=== PATIENT | female | born 1970 | race African-American/Black ===

== ENCOUNTER 2019-10-16 11:12 | Emergency (ER) | payer BC, SELFPAY ==
--- NOTE | ~2019-10-16 | XR_ITS ---
EXAMINATION: XR abdomen/kub 1V DATE: 10/16/2019 11:50 INDICATION: Right-sided abdominal pain. Hematuria. TECHNIQUE: A supine view of the abdomen was obtained. COMPARISON: CT abdomen and pelvis 06/14/2019 FINDINGS: There are no dilated loops of bowel. There are phleboliths in the pelvis. There is a surgic al clip in left pelvis. IMPRESSION: 1. No urolithiasis. Reviewed, dictated and finalized at location E. IMPRESSION: 1. No urolithiasis.
--- NOTE | 2019-10-16 11:18 | ED.GENADULT ---
HPI - General Adult General Chief complaint: Urogenital-Female Stated complaint: uti Time Seen by Provider: 10/16/19 11:18 Source: patient Mode of arrival: ambulatory Limitations: no limitations History of Present Illness HPI narrative: 49-year-old female patient presents to the [facility] with complaints of right flank pain that started last night. Patient states that she has had issues with chronic blood in her urine in the past and that her primary doctor referred her to a apn. Patient saw her apn for the first time yesterday and has orders to have blood drawn. Patient states that the flank pain did not start until last night. Patient states that this does feel similar to when she had a UTI. Patient states that she does remember having pain with urination last week but that did resolve. Patient states she does have increase in frequency with urination. Patient also reports diarrhea about 4 times last night. Patient denies any fevers nausea or vomiting. Patient denies taking anything for the pain. Related Data Home Medications Medication Instructions Recorded Confirmed ferrous sulfate 325 mg DAILY 06/14/19 10/16/19 potassium chloride 20 meq PO DAILY 06/14/19 10/16/19 ergocalciferol (vitamin D2) 1,250 mcg DAILY 10/16/19 10/16/19 estradiol 1 patch WEEKLY 10/16/19 10/16/19 hydrochlorothiazide 25 mg DAILY 10/16/19 10/16/19 sertraline 50 mg DAILY 10/16/19 10/16/19 sumatriptan succinate 6 mg SUBCUT PRN PRN 10/16/19 10/16/19 tramadol 50 mg Q4-6H PRN 10/16/19 10/16/19 Allergies Allergy/AdvReac Type Severity Reaction Status Date / Time No Known Allergies Allergy Verified 10/16/19 11:15 Review of Systems Review of Systems: Narrative: CONSTITUTIONAL: Denies fever, chills, or sweats. EYES: Denies visual changes, redness, or discharge. ENT: Denies rhinorrhea, congestion, sore throat, or otalgia. CARDIOVASCULAR: Denies chest pain, palpitations, or edema. RESPIRATORY: Denies cough or dyspnea. GASTROINTESTINAL: Denies abdominal pain, nausea, vomiting, positive diarrhea. GENITOURINARY: Denies dysuria or hematuria. SKIN: Denies rash or itching. MUSCULOSKELETAL: Positive right lower back pain, denies joint pain, or myalgia. NEUROLOGIC: Denies headache, numbness, or weakness. PSYCHIATRIC: Denies anxiety or depression. [facility] Past Medical History Medical History Anxiety Arthritis neck and shoulders Back pain Depression Fibroids Gastritis HTN (hypertension) PADILLA (iron deficiency anemia) Kidney stones Liver disease Migraines Surgical History Surgical History History of colonoscopy History of hysterectomy 05/2018 History of tubal ligation Social History Social History Tobacco type: cigarettes Alcohol intake: current Substance use: never Gender identity (if verbalized by the patient): Female Comments At the time of my signature I agree with nursing past medical history, surgical, social, and family history. There is no relevant family history pertinent to the presenting complaint. Exam Narrative: Exam Narrative: GENERAL: Well-appearing, well-nourished, and in no acute distress. HEAD: Normocephalic, atraumatic. EYES: PERRLA and EOMI. ENT: Nares clear, no rhinorrhea or epistaxis. Mucous membranes moist. NECK: Supple. No lymphadenopathy CHEST: Clear to auscultation. No respiratory distress. HEART: Regular rate and rhythm. No murmur heard. Normal peripheral pulses. ABDOMEN: Soft, nontender, nondistended, normal active bowel sounds. CVA tenderness on percussion on the right side EXTREMITIES: Normal range of motion. No edema. SKIN: Warm, dry, no rash. NEURO: No focal deficits. Alert and oriented x3. Course Reevaluation(s) Reevaluation #1: Reevaluated patient after her KUB had resulted. Discussed with her that the KUB does not s
[2019-10-16 11:23] VITALS: BP 156/90; PULSE 77; RESP 18; TEMP 36.8; O2SAT 100
== END 2019-10-16 12:15 | disposition home or self-care (01) ==
PROVIDERS: Emergency Provider Nurse Practitioner Family; PCP Nurse Practitioner Family
DX: R10.9 Unspecified abdominal pain (principal); N30.21 Other chronic cystitis with hematuria; F41.9 Anxiety disorder, unspecified; M19.012 Primary osteoarthritis, left shoulder; M19.011 Primary osteoarthritis, right shoulder; F32.9 Major depressive disorder, single episode, unspecified; I10 Essential (primary) hypertension; D50.9 Iron deficiency anemia, unspecified; Z87.442 Personal history of urinary calculi; K76.9 Liver disease, unspecified; F17.210 Nicotine dependence, cigarettes, uncomplicated
CPT/HCPCS: 74018; 81003; 87086; 99213; G0463

== ENCOUNTER 2019-10-29 19:53 | Emergency (ER) | payer BC, SELFPAY ==
[2019-10-29 19:55] VITALS: BP 150/80; PULSE 91; RESP 16; TEMP 37.1; O2SAT 100
--- NOTE | 2019-10-29 20:13 | ED.SKABFB ---
HPI - Skin/Abscess/Foreign Bdy General Chief complaint: Skin/Abscess/Foreign Body Stated complaint: hemorroids Time Seen by Provider: 10/29/19 20:08 Source: RN notes reviewed History of Present Illness HPI narrative: Patient presents emergency department from home for hemorrhoid. Patient states that she noted today while using the restroom she had a large hemorrhoid that was tender to palpation. She states that she has noted no blood in her stool. She denies having any fevers or chills abdominal pain nausea vomiting diarrhea or any other symptoms patient states that it does hurt to sit flat on her bottom she denies any other symptoms at this time Related Data Home Medications Medication Instructions Recorded Confirmed ferrous sulfate 325 mg DAILY 06/14/19 10/16/19 potassium chloride 20 meq PO DAILY 06/14/19 10/16/19 ergocalciferol (vitamin D2) 1,250 mcg DAILY 10/16/19 10/16/19 estradiol 1 patch WEEKLY 10/16/19 10/16/19 hydrochlorothiazide 25 mg DAILY 10/16/19 10/16/19 sertraline 50 mg DAILY 10/16/19 10/16/19 sumatriptan succinate 6 mg SUBCUT PRN PRN 10/16/19 10/16/19 tramadol 50 mg Q4-6H PRN 10/16/19 10/16/19 Allergies Allergy/AdvReac Type Severity Reaction Status Date / Time No Known Allergies Allergy Verified 10/29/19 19:58 Review of Systems Review of Systems: Narrative: Gen.: Denies fevers or chills ENT: Denies congestion Respiratory: Denies shortness of breath or cough CV: Denies chest pain or palpitations GI: Denies abdominal pain nausea, emesis or diarrhea reports rectal pain Musculoskeletal: Denies back pain or muscle pain Neuro: Denies numbness, tingling, weakness or focal weakness Skin: Denies rash Except as documented, all other systems reviewed and negative [facility] Past Medical History Medical History Anxiety Arthritis neck and shoulders Back pain Depression Fibroids Gastritis HTN (hypertension) PADILLA (iron deficiency anemia) Kidney stones Liver disease Migraines Social History Social History Tobacco type: cigarettes Alcohol intake: current Substance use: never Gender identity (if verbalized by the patient): Female Exam Narrative: Exam Narrative: APPEARANCE: No acute distress, nontoxic, resting in bed EYES: EOMI HEENT: Normocephalic, atraumatic, OMM RESPIRATORY: No respiratory distress Clear to auscultation bilaterally with no rhonchi wheezing or rales. CARDIOVASCULAR: Regular rate and rhythm without murmurs rubs or gallops. ABDOMINAL: Soft, nontender, nondistended, no rebound or guarding Rectal: Large hemorrhoid in the 7 o'clock position no active bleeding no surrounding erythema MUSCULOSKELETAl: Moves all extremities. No clubbing, cyanosis or edema. NEURO: Awake and alert. Following commands, speech normal, no focal deficits SKIN:: Warm, dry. No rashes lesions or abrasions PSYCHIATRIC: Normal affect/mood, Course Course Emergency Course: Discussed with patient results of workup and diagnosis. Discussed need for follow-up with primary care, proper use of medication, and reasons to return to the emergency department. Patient understands and agrees to current treatment plan Vital Signs Vital signs: Vital Signs Temperature 98.7 F 10/29/19 19:55 Pulse Rate 91 10/29/19 19:55 Respiratory Rate 16 10/29/19 19:55 Blood Pressure 150/80 H 10/29/19 19:55 Pulse Oximetry 100 10/29/19 19:55 Temperature 98.7 F 10/29/19 19:55 Pulse Rate 91 10/29/19 19:55 Respiratory Rate 16 10/29/19 19:55 Blood Pressure 150/80 H 10/29/19 19:55 Pulse Oximetry 100 10/29/19 19:55 Discharge Plan Discharge Clinical Impression: Hemorrhoid Patient Disposition: Home, Self-Care Condition: Stable Instructions: Antibiotic Form, Hemorrhoids (ED) Additional Instructions: Return for increasing pain fever or any other symptoms of concern Prescriptions: New
== END 2019-10-29 20:59 | disposition home or self-care (01) ==
PROVIDERS: Emergency Provider Emergency Medicine; PCP Nurse Practitioner Family
DX: K64.9 Unspecified hemorrhoids (principal); F41.9 Anxiety disorder, unspecified; M19.012 Primary osteoarthritis, left shoulder; M19.011 Primary osteoarthritis, right shoulder; M47.812 Spondylosis without myelopathy or radiculopathy, cervical region; I10 Essential (primary) hypertension; D50.9 Iron deficiency anemia, unspecified; Z87.442 Personal history of urinary calculi; K76.9 Liver disease, unspecified; F17.210 Nicotine dependence, cigarettes, uncomplicated
CPT/HCPCS: 99283; A9270

== ENCOUNTER 2019-12-11 11:27 | Emergency (ER) | payer BC, SELFPAY ==
[2019-12-11 11:42] VITALS: BP 129/87; PULSE 72; RESP 18; TEMP 36.6; O2SAT 100
--- NOTE | 2019-12-11 12:09 | ED.WOUNDLAC ---
HPI - Wound/Laceration General Chief Complaint: Wound/Laceration Stated Complaint: Abrasion between toes/foot pain Time Seen by Provider: 12/11/19 12:08 Source: patient and RN notes reviewed Mode of arrival: ambulatory Limitations: no limitations History of Present Illness HPI narrative: 49-year-old female presents with concern for painful open skin between her toes. Reports 3 to 4-month history of this. Denies any injury, trauma. Reports she wears steel toe boots at work. Denies any intervention for this. Related Data Home Medications Medication Instructions Recorded Confirmed ergocalciferol (vitamin D2) 1,250 mcg DAILY 10/16/19 12/09/19 estradiol 1 patch WEEKLY 10/16/19 12/09/19 hydrochlorothiazide 25 mg DAILY 10/16/19 12/09/19 sertraline 50 mg DAILY 10/16/19 12/09/19 sumatriptan succinate 6 mg SUBCUT PRN PRN 10/16/19 12/09/19 tramadol 50 mg Q4-6H PRN 10/16/19 12/09/19 clonazepam 12/11/19 potassium chloride [Klor-Con] 12/11/19 Allergies Allergy/AdvReac Type Severity Reaction Status Date / Time No Known Allergies Allergy Verified 12/09/19 10:34 Review of Systems Review of Systems: Narrative: CONSTITUTIONAL: Denies malaise, chills, sweats, or fever. SKIN: Reports cracked, painful, discolored skin between the toes of both feet, reports the worst areas between the fourth and fifth toe on the left foot. Reports thick discolored toenails MUSCULOSKELETAL: Denies musculoskeletal pain All systems reviewed & are unremarkable except as noted in HPI and below PMFSH Social History Social History Tobacco type: cigarettes Alcohol intake: current Substance use: never Gender identity (if verbalized by the patient): Female Comments At time of signature, agree with nursing past medical, surgical, social and family history. There is no relevant family history pertinent to the presenting complaint Exam Narrative: Exam Narrative: GENERAL: Well-appearing, well-nourished, and in no acute distress. HEAD: Normocephalic, atraumatic. EYES: PERRLA, conjunctivae clear NECK: Supple. CHEST: Speaks in full sentences. No respiratory distress. HEART: Regular rate and rhythm. Normal and equal peripheral pulses. EXTREMITIES: Digits of both feet have normal strength and sensation, no edema, normal range of motion. Distal pulses palpable and equal bilaterally, skin warm, dry, pink. Capillary refill less than 3 seconds. SKIN: Warm, dry, no rash. Yellow discolored skin between all digits of bilateral feet, with some fissures noted between the fourth and fifth digits of the left foot. Thick, yellow discolored toenails bilaterally NEURO: Alert and oriented x3. PSYCH: Normal mood and affect Course Course Emergency Course: Patient is aware of diagnosis, understands and agrees to treatment plan. Anticipatory guidance given. Patient agrees to follow-up as directed and is aware of reasons to seek care at the emergency department. Portions of this record may have been created with voice recognition software Vital Signs Vital signs: Vital Signs Temperature 97.8 F 12/11/19 11:42 Pulse Rate 72 12/11/19 11:42 Respiratory Rate 18 12/11/19 11:42 Blood Pressure 129/87 12/11/19 11:42 Pulse Oximetry 100 12/11/19 11:42 Temperature 97.8 F 12/11/19 11:42 Pulse Rate 72 12/11/19 11:42 Respiratory Rate 18 12/11/19 11:42 Blood Pressure 129/87 12/11/19 11:42 Pulse Oximetry 100 12/11/19 11:42 Reviewed. Patient has been instructed to follow up with her primary care provider within the next week regarding her elevated blood pressure today. MDM - Wound/Laceration MDM Narrative Medical decision making narrative: Exam findings show no acute concerns or changes; patient is non-toxic appearing and is in no distress. Patient is appropriate for outpatient treatment and follow-up. Differential Diagnosis Differential diagnosis: Likely other (Tinea, abrasions, avulsions, lacerati
== END 2019-12-11 12:20 | disposition home or self-care (01) ==
PROVIDERS: Emergency Provider Nurse Practitioner; PCP Nurse Practitioner Family
DX: B35.3 Tinea pedis (principal); I10 Essential (primary) hypertension; F41.9 Anxiety disorder, unspecified; F32.9 Major depressive disorder, single episode, unspecified
CPT/HCPCS: 99213; G0463

== ENCOUNTER 2020-01-13 12:06 | Emergency (ER) | payer BC, SELFPAY ==
[2020-01-13 12:23] VITALS: BP 152/85; PULSE 73; RESP 18; TEMP 36.8; O2SAT 98
--- NOTE | 2020-01-13 12:24 | ECG_ITS ---
Measurements Intervals [place] Rate: 73 P: 66 HI: 163 QRS: 53 QRSD: 97 T: 48 QT: 414 QTc: 458 Interpretive Statements SINUS RHYTHM BASELINE ARTIFACT- II, III, AVR, AVL, AVF NORMAL ECG Electronically Signed On 01-13-2020 12:35:46 CDT by Khanh Roberson D.O.
--- NOTE | 2020-01-13 12:34 | ED.CHESTPAIN ---
HPI - Chest Pain General Chief Complaint: Chest Pain Stated Complaint: Chest Pain Time Seen by Provider: 01/13/20 12:14 Source: patient and RN notes reviewed Mode of arrival: ambulatory Limitations: no limitations History of Present Illness HPI narrative: Patient presents today complaining of sudden onset right-sided chest pain that radiates into the back. Pain started at 1900 last night, after she had been exercising that afternoon. She does exercise frequently. She is also complaining of intermittent shortness of breath. Describes the pain as achy. Currently rates her pain 8/10. She has tried Tylenol and tramadol without relief. Denies cardiac history. Reports father with history of [place]. Denies history of COPD or asthma. Quit smoking cigarettes 4 years ago, but smokes 2 black and mild cigarillos daily. States her pain improves when she is lying prone, but worsens when she is supine. Denies nausea, vomiting, abdominal pain, sweats, chills, fever. Denies dizziness, lightheadedness. No known COVID-19 exposure. No sick symptoms. Believes she does still have her gallbladder. MD complaint: chest pain Related Data Home Medications Medication Instructions Recorded Confirmed ergocalciferol (vitamin D2) 1,250 mcg DAILY 10/16/19 12/09/19 estradiol 1 patch WEEKLY 10/16/19 12/09/19 hydrochlorothiazide 25 mg DAILY 10/16/19 12/09/19 sertraline 50 mg DAILY 10/16/19 12/09/19 sumatriptan succinate 6 mg SUBCUT PRN PRN 10/16/19 12/09/19 tramadol 50 mg Q4-6H PRN 10/16/19 12/09/19 clonazepam 0.5 mg PO DAILY PRN 12/11/19 potassium chloride [Klor-Con] 12/11/19 ergocalciferol (vitamin D2) 01/13/20 tramadol mg 01/13/20 Allergies Allergy/AdvReac Type Severity Reaction Status Date / Time No Known Allergies Allergy Verified 01/13/20 12:13 Review of Systems Review of Systems: Narrative: CONSTITUTIONAL: Denies body aches, fever, chills, or sweats. EYES: Denies visual changes, redness, or discharge. ENT: Denies rhinorrhea, congestion, sore throat, or otalgia. CARDIOVASCULAR: Denies palpitations, or edema. + Right sided chest pain RESPIRATORY: Denies cough. + Shortness of breath GASTROINTESTINAL: Denies abdominal pain, nausea, vomiting, or diarrhea. GENITOURINARY: Denies dysuria or hematuria. SKIN: Denies rash, itching, or wounds. MUSCULOSKELETAL: Denies back pain, joint pain, or myalgia. NEUROLOGIC: Denies headache, numbness, tingling, or weakness. PSYCH: Denies depression or anxiety. [facility] Family History Family History (Updated 01/13/20 @ 12:44 by Yesenia Rausch, [facility], ) Father Kidney disease Hypertension Acute myocardial infarction Sibling Hypertension Sibling Hypertension Thyroid disease Sibling Hypertension Social History Social History Tobacco type: cigarettes Alcohol intake: current Substance use: never Gender identity (if verbalized by the patient): Female Comments At time of signature, I have reviewed and agree with nursing past medical, surgical, social and family history unless otherwise noted. Please see nursing chart for further information. There is no relevant family history pertinent to the presenting complaint Exam Narrative: Exam Narrative: GENERAL: Well-appearing, well-nourished, mild pain distress. HEAD: Normocephalic, atraumatic. EYES: EOMI. No redness or drainage. Conjunctivae normal. ENT: Mucous membranes pink and moist. NECK: Normal AROM. CHEST: No respiratory distress. Clear to auscultation. Tender to right lateral ribs. HEART: Regular rate and rhythm. No murmur appreciated. Normal peripheral pulses. ABDOMEN: Soft, nontender, nondistended, normal active bowel sounds. MUSCULOSKELETAL: No bony tenderness. EXTREMITIES: Normal range of motion. No edema. SKIN: Warm, dry, no rash. Capillary refill normal. Normal skin turgor. NEURO: No focal deficits. Alert and oriented x3. Gait steady. PSYCH: Normal affect. No signs
== END 2020-01-13 12:35 | disposition short-term general hospital (02) ==
PROVIDERS: Emergency Provider Nurse Practitioner; PCP Nurse Practitioner Family
DX: R06.02 Shortness of breath (principal); R07.9 Chest pain, unspecified; F17.290 Nicotine dependence, other tobacco product, uncomplicated; I10 Essential (primary) hypertension; F41.9 Anxiety disorder, unspecified; F32.9 Major depressive disorder, single episode, unspecified
CPT/HCPCS: 93005; 99213; G0463

== ENCOUNTER 2020-01-13 13:33 | Emergency (ER) | payer BC, SELFPAY ==
[2020-01-13] VITALS (15 sets, daily range): BP systolic 165–170; BP diastolic 86–96; PULSE 53–95; RESP 12–20; TEMP 36.7; O2SAT 98–100
--- NOTE | ~2020-01-13 | CT_ITS ---
EXAMINATION: CTA chest PE protocol DATE: 01/13/2020 15:00 INDICATION: Right chest pain. Lung nodule. TECHNIQUE: Computed tomography angiography (CTA) of the chest was performed with 100 mL Omnipaque-350 intravenous contrast timed to evaluate the pulmonary arteries. Coronal maximum intensity projection 3D-reconstructions were created by the technologist. Automated exposure control and iterative reconst ruction technique were employed. The dose-length product was 202.41 mGy-cm. COMPARISON: Chest single view 01/13/2020, CT abdomen and pelvis 06/14/2019 FINDINGS: The lungs demonstrate mild dependent atelectasis. No pleural effusion. The heart size is no rmal. No pericardial effusion. There is no pulmonary embolus. There are cysts in the liver measuring up to 2.3 cm. There is mild thoracic spondylosis and moderate cervical spondylosis. IMPRESSION: 1. No pulmonary embolus. 2. No lung nodule. Reviewed, dictated and finalized at location A.
--- NOTE | ~2020-01-13 | XR_ITS ---
EXAMINATION: XR chest 1V portable INDICATION: Chest pain TECHNIQUE: Portable AP chest at 1421 hours COMPARISON: 02/13/2018 FINDINGS: An approximately 2.8 cm nodular opacity projects in the left midlung zone. No acute airspac e opacities are identified. There is no pleural effusion or pneumothorax. The cardiomediastinal silho uette is normal for technique. IMPRESSION: 1. Nodular opacity of the left midlung zone. Further evaluation with CT of the chest is recommended, which is pending. Reviewed, dictated and finalized at location A.
--- NOTE | 2020-01-13 13:38 | ECG_ITS ---
Measurements Intervals [place] Rate: 74 P: 61 MA: 136 QRS: 43 QRSD: 97 T: 50 QT: 407 QTc: 452 Interpretive Statements SINUS RHYTHM BASELINE WANDER- I, III, AVR, AVL, AVF BORDERLINE ECG Electronically Signed On 01-13-2020 13:59:29 CDT by Khanh Roberson D.O.
--- NOTE | 2020-01-13 13:50 | ED.CHESTPAIN ---
HPI - Chest Pain General Chief Complaint: Chest Pain Stated Complaint: Chest Pain, Back Pain Time Seen by Provider: 01/13/20 13:37 Source: patient Mode of arrival: ambulatory Limitations: no limitations History of Present Illness HPI narrative: Patient presents with right-sided chest pain. Started yesterday while lifting 10 pound weights at the gym. She has had it before and was diagnosed with a kidney infection. She gauges the pain at 8 out of 10. She says she has shortness of breath but is just due to the pain. She denies fever chills or sweats. She denies nausea. She takes vitamin D for her bones and estrogen for her postmenopausal sweats. She has an occasional cough. Her surgeries include hysterectomy. She smokes Black and mild, she drinks wine, she does not smoke marijuana. She has not been sick recently. He does not work outside the home. She takes walks and reads books. MD complaint: chest pain Onset (ago): day(s) Timing of current episode: constant Onset: during exertion Pain location: right chest Pain radiation: back Severity: severe Pain scale (0-10): 8 Relieving factors: nothing Exacerbating factors: nothing Related Data Home Medications Medication Instructions Recorded Confirmed ergocalciferol (vitamin D2) 1,250 mcg PO WEEKLY 10/16/19 01/13/20 estradiol 1 patch WEEKLY 10/16/19 01/13/20 hydrochlorothiazide 25 mg DAILY 10/16/19 01/13/20 sertraline 50 mg DAILY 10/16/19 01/13/20 tramadol 50 mg Q4-6H PRN 10/16/19 01/13/20 clonazepam 0.5 mg PO DAILY PRN 12/11/19 01/13/20 Allergies Allergy/AdvReac Type Severity Reaction Status Date / Time No Known Allergies Allergy Verified 01/13/20 12:13 Review of Systems Review of Systems: Narrative: CONSTITUTIONAL: Denies fever, chills, or sweats. ENT: Denies rhinorrhea, congestion, sore throat, or otalgia. CARDIOVASCULAR: She has chest pain, but not palpitations, or edema. RESPIRATORY: She has cough and dyspnea. GASTROINTESTINAL: Denies abdominal pain, nausea, vomiting, or diarrhea. GENITOURINARY: Denies dysuria or hematuria. SKIN: Denies rash or itching. MUSCULOSKELETAL: She has back pain, but not joint pain, or myalgia. NEUROLOGIC: Denies headache, numbness, or weakness. . All systems reviewed & are unremarkable except as noted in HPI and below PMFSH Past Medical History Medical History Anxiety Arthritis neck and shoulders Back pain Depression Fibroids Gastritis HTN (hypertension) PADILLA (iron deficiency anemia) Keloid skin disorder Kidney stones Liver disease Migraines Surgical History Surgical History History of colonoscopy History of hysterectomy 05/2018 History of tubal ligation Family History Family History (Updated 01/13/20 @ 12:44 by Yesenia Rausch, [facility], ) Father Kidney disease Hypertension Acute myocardial infarction Sibling Hypertension Sibling Hypertension Thyroid disease Sibling Hypertension Social History Social History Tobacco type: cigarettes Alcohol intake: current Substance use: never Gender identity (if verbalized by the patient): Female Exam Narrative: Exam Narrative: GENERAL: Well-appearing, well-nourished, and in no acute distress. HEAD: Normocephalic, atraumatic. EYES: PERRLA and EOMI. ENT: Nares clear, no rhinorrhea or epistaxis. Mucous membranes moist. NECK: Supple. CHEST: Clear to auscultation. No respiratory distress. HEART: Regular rate and rhythm. No murmur heard. Normal peripheral pulses. ABDOMEN: Soft, nontender, nondistended, normal active bowel sounds. EXTREMITIES: Normal range of motion. No edema. SKIN: Warm, dry, no rash. Oily. NEURO: No focal deficits. Alert and oriented x3. PSYCH: Normal mood and affect. Course Reevaluation(s) Reevaluation #1: Patient is feeling a little better and says the chest pain is 6 out
[2020-01-13 13:59] LABS: Basophils Percent Auto 0.4 % (0.2-1.2); Eosinophils Absolute Auto 0.2 K/mm3 (0-0.3); Eosinophils Percent Auto 2.2 % (0-4.4); Hematocrit 34.1 % (37.0-47.0); Hemoglobin 11.9 g/dL (12.0-15.0); Lymphocytes Absolute Auto 3.09 K/mm3 (0.9-3.2); Lymphocytes Percent Auto 46.1 % (18.3-44.2); Mean Corpuscular HGB Conc 34.9 g/dl (32-36); Mean Corpuscular Hemoglobin 28.5 pg (26-34); Mean Corpuscular Volume 81.8 fl (80-100); Mean Platelet Volume 10.6 fl (7.4-10.4); Monocytes Absolute Auto 0.5 K/mm3 (0.1-0.6); Monocytes Percent Auto 6.7 % (2.6-8.5); Neutrophils Percent Auto 44.6 % (45.5-73.1); Platelet Count Result 197 k/mm3 (150-375); Red Blood Count 4.17 M/mm3 (4.2-5.4); Red Cell Distribution Width 13.2 % (11.5-14.5); White Blood Count 6.7 K/mm3 (4.5-10.0)
[2020-01-13] MEDS: ASPIRIN 81 MG CHEWABLE TABLET 324 MG PO (14:00)
[2020-01-13] MEDS: BELLADONNA ALK/PHENOB ELIX 10 ML, MAG HYDROX/ALUMINUM HYD/SIMETH 30 ML, LIDOCAINE HCL 2... PO (14:00)
[2020-01-13 14:09] LABS: Prothrombin Time 12.4 Seconds (11.1-14.7)
[2020-01-13 14:10] LABS: Partial Thromboplastin Time 27.6 SECONDS (22.3-36.8)
[2020-01-13 14:12] LABS: Alanine Aminotransferase 13 U/L (4-35); Albumin Level 4.3 g/dL (3.5-5.1); Alkaline Phosphatase 68 U/L (38-126); Anion Gap 7 mmol/L (8-16); Aspartate Amino Transferase 23 U/L (14-36); Bilirubin,Total 0.4 mg/dL (0.2-1.3); Blood Urea Nitrogen 17 mg/dL (7-17); Carbon Dioxide 29 mmol/L (22-30); Chloride 99 mmol/L (98-107); Estimated CRCL calculation 38 ml/min; Estimated Glomerular Filt Rate 48; Glucose 91 mg/dL (65-105); Potassium 3.3 mmol/L (3.4-5.0); Sodium 135 mmol/L (137-145)
[2020-01-13] MEDS: FAMOTIDINE 20 MG/2 ML VIAL IV PUSH (14:15)
[2020-01-13] MEDS: MORPHINE SULFATE 2 MG/ML INJ IV PUSH (14:17)
[2020-01-13] MEDS: SODIUM CHLORIDE 0.9% IV 1,000 ML 999 ML IV CONT (14:20)
[2020-01-13 14:24] LABS: NT Pro B Type Natriuretic Pept 363 PG/ML (5-100); Troponin I < 0.012 ng/mL (0.000-0.034)
[2020-01-13 14:34] LABS: Add Urine Microscopic? YES; Appearance Urine Clear (Clear); Bacteria Urine Trace /hpf; Bilirubin Urine Negative (Negative); Blood Urine 3+ (Negative); Color Urine Straw (Yellow); Glucose Urine UA Negative (Negative); Ketones Urine Negative (Negative); Leukocyte Esterase Ur Negative LEU/UL (Negative); Mucus Urine Rare /lpf; Nitrate Urine Negative (Negative); Protein Urine Negative (Negative); RBC Urine 51-75 /hpf (0-2); Specific Grav Ur 1.011 (1.001-1.035); Squamous Epithelial Cell Urine Few /hpf (Few); Urobilinogen Urine Negative mg/dL (<2.0); WBC Urine 0-3 /hpf
[2020-01-13] MEDS: IBUPROFEN 600 MG TABLET PO (15:41)
--- NOTE | 2020-01-13 16:00 | PC.NURSE ---
Pt. requested that they are ready to go and would like to be discharged. EDP notified and will discharge Pt.
== END 2020-01-13 16:36 | disposition home or self-care (01) ==
PROVIDERS: Emergency Provider Emergency Medicine; PCP Nurse Practitioner Family
DX: R07.89 Other chest pain (principal); I11.0 Hypertensive heart disease with heart failure; R31.9 Hematuria, unspecified; I50.9 Heart failure, unspecified; F41.9 Anxiety disorder, unspecified; F32.9 Major depressive disorder, single episode, unspecified; D50.9 Iron deficiency anemia, unspecified; M19.012 Primary osteoarthritis, left shoulder; M19.011 Primary osteoarthritis, right shoulder; M47.812 Spondylosis without myelopathy or radiculopathy, cervical region
CPT/HCPCS: 36415; 71045; 71275; 80053; 81001; 83880; 84484; 85025; 85610; 85730; 93005; 96361; 96374; 96375; 99284; A9270; J2270; J7030; Q9967

== ENCOUNTER 2020-02-06 15:56 | Emergency (ER) | payer BC, SELFPAY ==
[2020-02-06 16:11] VITALS: BP 115/95; PULSE 83; RESP 18; TEMP 36.3; O2SAT 100
--- NOTE | 2020-02-06 16:56 | ED.HA ---
HPI - Headache General Chief Complaint: Headache Stated Complaint: headache Time Seen by Provider: 02/06/20 16:44 Source: patient Mode of arrival: ambulatory Limitations: no limitations History of Present Illness HPI Narrative: This is a 50 year old female that presents to the ER for headache since last night. Described as throbbing. Has history of migraines. Reports she took medication last night for her headache with relief, but then the headache returned today. She has not taken anything for pain yet today. Reports photophobia. Denies fever, vision changes, vomiting, numbness, or weakness. Related Data Home Medications Medication Instructions Recorded Confirmed ergocalciferol (vitamin D2) 1,250 mcg PO WEEKLY 10/16/19 01/13/20 estradiol 1 patch WEEKLY 10/16/19 01/13/20 hydrochlorothiazide 25 mg DAILY 10/16/19 01/13/20 sertraline 50 mg DAILY 10/16/19 01/13/20 tramadol 50 mg Q4-6H PRN 10/16/19 01/13/20 clonazepam 0.5 mg PO DAILY PRN 12/11/19 01/13/20 sumatriptan succinate SUBCUT 02/06/20 Allergies Allergy/AdvReac Type Severity Reaction Status Date / Time No Known Allergies Allergy Verified 01/13/20 12:13 Review of Systems Review of Systems: Narrative: CONSTITUTIONAL: Denies fever EYES: Denies visual changes GASTROINTESTINAL: Denies vomiting NEUROLOGIC: Reports headache. Denies numbness, or weakness. All systems reviewed & are unremarkable except as noted in HPI and below PMFSH Family History Family History (Updated 01/13/20 @ 12:44 by Yesenia Rausch, [facility], ) Father Kidney disease Hypertension Acute myocardial infarction Sibling Hypertension Sibling Hypertension Thyroid disease Sibling Hypertension Social History Social History Tobacco type: cigarettes Alcohol intake: current Substance use: never Gender identity (if verbalized by the patient): Female Exam Narrative: Exam Narrative: GENERAL: Well-appearing, well-nourished, and in no acute distress. HEAD: Normocephalic, atraumatic. EYES: PERRLA and EOMI. ENT: Nares clear, no rhinorrhea or epistaxis. Mucous membranes moist. Oropharynx without tonsillar hypertrophy exudate or other lesions. Bilateral TMs pearly williamson non-bulging NECK: Supple. No adenopathy or masses. Normal range of motion CHEST: Clear to auscultation. No respiratory distress. No wheezes rales or rhonchi HEART: Regular rate and rhythm. No murmur heard. Normal peripheral pulses. EXTREMITIES: Normal range of motion. No edema. SKIN: Warm, dry, no rash. NEURO: No focal deficits. Alert and oriented x3. Cranial nerves II through XII grossly intact PSYCH: Normal mood and affect Course Vital Signs Vital signs: Vital Signs Temperature 97.3 F L 02/06/20 16:11 Pulse Rate 83 02/06/20 16:11 Respiratory Rate 18 02/06/20 16:11 Blood Pressure 115/95 H 02/06/20 16:11 Pulse Oximetry 100 02/06/20 16:11 Temperature 97.3 F L 02/06/20 16:11 Pulse Rate 83 02/06/20 16:11 Respiratory Rate 18 02/06/20 16:11 Blood Pressure 115/95 H 02/06/20 16:11 Pulse Oximetry 100 02/06/20 16:11 MDM - Headache MDM Narrative Medical decision making narrative: Patient presents the emergency department for migraine headache. Has history of migraines and takes triptans for this as needed at home. She is afebrile and nontoxic-appearing. She is neurologically intact. Reports relief with migraine cocktail. Patient stable and felt appropriate further outpatient evaluation. She was given warnings to return the ER Critical Care Time Critical Care Time Critical Care Time: No Discharge Plan Discharge Clinical Impression: Migraine Qualifiers: Migraine type: without aura Status migrainosus presence: without status migrainosus Intractability: not intractable Qualified Code(s): G43.009 - Migraine without aura, not intractable, without status migrainosus Patient Disposition: Home, Self-Care Condition: Stable In
[2020-02-06] MEDS: diphenhydrAMINE HCl INJ 50 MG/ML VIAL 25 MG IV PUSH (17:08)
[2020-02-06] MEDS: METOCLOPRAMIDE HCL INJ 10 MG/2 ML VIAL IV PUSH (17:09)
[2020-02-06] MEDS: KETOROLAC 30 MG/ML VIAL (*BKC) IV PUSH (17:09)
[2020-02-06] MEDS: SODIUM CHLORIDE 0.9% IV 1,000 ML 999 ML IV CONT (17:15)
[2020-02-06 18:41] VITALS: BP 129/88; PULSE 70; RESP 12; O2SAT 100
== END 2020-02-06 18:55 | disposition home or self-care (01) ==
PROVIDERS: Emergency Provider Emergency Medicine; PCP Nurse Practitioner Family
DX: G43.009 Migraine without aura, not intractable, without status migrainosus (principal)
CPT/HCPCS: 96361; 96365; 96375; 99284; J0131; J1100; J1200; J1885; J2765; J7030

== ENCOUNTER 2020-04-13 16:52 | Emergency (ER) | payer BC, SELFPAY ==
--- NOTE | 2020-04-13 16:56 | ED.GENADULT ---
HPI - General Adult General Chief complaint: Chest Pain Stated complaint: left arm pain/chest tightness Time Seen by Provider: 04/13/20 16:56 Source: patient Mode of arrival: ambulatory Limitations: no limitations History of Present Illness HPI narrative: 50-year-old female patient presents to the [facility] with complaints of left-sided chest pain that radiates to the left arm that started last night. Patient states she does have a little bit of shortness of breath that is intermittent and comes and goes but denies any shortness of breath at this time. Denies any swelling to the feet or legs. Patient denies any abdominal pain, nausea, vomiting or diarrhea. Denies any fevers, body aches or chills. Patient does have a history of liver disease and was seeing a kidney doctor but recently lost her insurance and is unable to see her kidney doctor at this time. Patient does have history of hypertension which she is treated for. Related Data Home Medications Medication Instructions Recorded Confirmed ergocalciferol (vitamin D2) 1,250 mcg PO WEEKLY 10/16/19 01/13/20 estradiol 1 patch WEEKLY 10/16/19 01/13/20 hydrochlorothiazide 25 mg DAILY 10/16/19 01/13/20 sertraline 50 mg DAILY 10/16/19 01/13/20 tramadol 50 mg Q4-6H PRN 10/16/19 01/13/20 clonazepam 0.5 mg PO DAILY PRN 12/11/19 01/13/20 sumatriptan succinate SUBCUT 02/06/20 amlodipine 04/13/20 potassium chloride meq PO 04/13/20 Allergies Allergy/AdvReac Type Severity Reaction Status Date / Time No Known Allergies Allergy Verified 01/13/20 12:13 Review of Systems Review of Systems: Narrative: CONSTITUTIONAL: Denies fever, chills, or sweats. EYES: Denies visual changes, redness, or discharge. ENT: Denies rhinorrhea, congestion, sore throat, or otalgia. CARDIOVASCULAR: Positive left sided chest pain with radiation to left arm, denies palpitations, or edema. RESPIRATORY: Denies cough, positive intermittent dyspnea. GASTROINTESTINAL: Denies abdominal pain, nausea, vomiting, or diarrhea. GENITOURINARY: Denies dysuria or hematuria. SKIN: Denies rash or itching. MUSCULOSKELETAL: Denies back pain, joint pain, or myalgia. NEUROLOGIC: Denies headache, numbness, or weakness. PSYCHIATRIC: Denies anxiety or depression. [facility] Past Medical History Medical History (Updated 04/13/20 @ 17:25 by SAURAV Cook) Anxiety Arthritis neck and shoulders Back pain Depression Fibroids Gastritis HTN (hypertension) PADILLA (iron deficiency anemia) Keloid skin disorder Kidney stones Liver disease Migraines Surgical History Surgical History History of colonoscopy History of hysterectomy 05/2018 History of tubal ligation Family History Family History Father Kidney disease Hypertension Acute myocardial infarction Sibling Hypertension Sibling Hypertension Thyroid disease Sibling Hypertension Social History Social History Tobacco type: cigarettes Alcohol intake: current Substance use: never Gender identity (if verbalized by the patient): Female Comments At the time of my signature I agree with nursing past medical history, surgical, social, and family history. There is no relevant family history pertinent to the presenting complaint. Exam Narrative: Exam Narrative: GENERAL: Well-appearing, well-nourished, and in no acute distress. HEAD: Normocephalic, atraumatic. EYES: PERRLA and EOMI. ENT: Nares clear, no rhinorrhea or epistaxis. Mucous membranes moist. NECK: Supple. No lymphadenopathy CHEST: Clear to auscultation. No respiratory distress. Patient able talk in clear complete sentences. No tripoding noted. HEART: Regular rate and rhythm. No murmur heard. Normal peripheral pulses. ABDOMEN: Soft, nontender, nondistended, normal active bowel sounds. EXTREMITIES: Normal range of motion. No mike
[2020-04-13 17:06] VITALS: BP 158/91; PULSE 74; RESP 16; TEMP 37.2; O2SAT 100
[2020-04-13] MEDS: ASPIRIN 81 MG CHEWABLE TABLET 324 MG PO (17:20)
== END 2020-04-13 17:27 | disposition short-term general hospital (02) ==
PROVIDERS: Emergency Provider Nurse Practitioner Family
DX: R07.89 Other chest pain (principal); I10 Essential (primary) hypertension; K76.9 Liver disease, unspecified; F41.9 Anxiety disorder, unspecified; F32.9 Major depressive disorder, single episode, unspecified; M19.012 Primary osteoarthritis, left shoulder; M19.011 Primary osteoarthritis, right shoulder; M47.812 Spondylosis without myelopathy or radiculopathy, cervical region
CPT/HCPCS: 93005; 99213; A9270; G0463

== ENCOUNTER 2020-04-13 17:54 | Emergency (ER) | payer BC, SELFPAY ==
--- NOTE | ~2020-04-13 | XR_ITS ---
EXAMINATION: XR chest 1V portable DATE: 04/13/2020 19:21 INDICATION: Left-sided chest pain radiating to the left arm and shoulder. Shortness of breath. TECHNIQUE: frontal view of the chest was obtained. COMPARISON: Chest radiograph dated 01/13/2020 FINDINGS: Symmetric nipple shadows project over the bilateral anterior sixth ribs at the lateral lung bases. No other airspace opacities, pulmonary edema, pleural effusion or pneumothorax. Cardiomegaly mediastina l silhouette is within normal limits for AP technique. IMPRESSION: 1. No acute cardiopulmonary disease. Reviewed, dictated and finalized at location H. TRUCTION CODE ADMINISTRATOR
--- NOTE | 2020-04-13 17:55 | PC.NURSE ---
EKG BROUGHT OVER FROM URGENT CARE. NSR. PT WISHES TO HAVE REPEAT EKG AFTER DOCTOR OFFICIALLY ORDERS IT.
[2020-04-13 18:22] VITALS: BP 164/86; PULSE 79; RESP 16; TEMP 36.8; O2SAT 98
--- NOTE | 2020-04-13 18:43 | ECG_ITS ---
SINUS RHYTHM DELAYED PRECORDIAL R/S TRANSITION BORDERLINE T WAVE ABNORMALITY- ANTERIOR LEADS BASELINE ARTIFACT- I, II, V5 BORDERLINE ECG Electronically Signed On 04-13-2020 20:18:32 ELECTORATE OFFICER by Khanh Roberson D.O. COMPARED TO ECG 04/13/2020 17:07:04 NO SIGNIFICANT CHANGES MTDD
[2020-04-13 18:55] LABS: Basophils Percent Auto 0.5 % (0.2-1.2); Eosinophils Absolute Auto 0.1 K/mm3 (0-0.3); Eosinophils Percent Auto 1.9 % (0-4.4); Hematocrit 35.2 % (37.0-47.0); Hemoglobin 12.2 g/dL (12.0-15.0); Immature Granulocyte Absolute 0.01 K/mm3 (0.00-0.031); Immature Granulocyte Percent A 0.2 % (0-0.5); Lymphocytes Absolute Auto 3.47 K/mm3 (0.9-3.2); Lymphocytes Percent Auto 55.6 % (18.3-44.2); Mean Corpuscular HGB Conc 34.7 g/dl (32-36); Mean Corpuscular Volume 83.6 fl (80-100); Monocytes Absolute Auto 0.4 K/mm3 (0.1-0.6); Monocytes Percent Auto 5.9 % (2.6-8.5); Neutrophils Absolute Auto 2.2 K/mm3 (1.3-6.7); Neutrophils Percent Auto 35.9 % (45.5-73.1); Platelet Count Result 207 k/mm3 (150-375); Red Blood Count 4.21 M/mm3 (4.2-5.4); White Blood Count 6.2 K/mm3 (4.5-10.0)
[2020-04-13 19:13] LABS: Add Urine Microscopic? YES; Appearance Urine Clear (Clear); Bilirubin Urine Negative (Negative); Blood Urine 3+ (Negative); Color Urine Straw (Yellow); Glucose Urine UA Negative (Negative); Ketones Urine Negative (Negative); Leukocyte Esterase Ur Negative LEU/UL (Negative); Nitrate Urine Negative (Negative); Protein Urine Negative (Negative); RBC Urine 21-50 /hpf (0-2); Specific Grav Ur 1.011 (1.001-1.035); Squamous Epithelial Cell Urine Few /hpf (Few); Urobilinogen Urine Negative mg/dL (<2.0); WBC Urine 0-3 /hpf
--- NOTE | 2020-04-13 19:25 | ED.CHESTPAIN ---
HPI - Chest Pain General Chief Complaint: Chest Pain Stated Complaint: SOB,CHEST PAIN ELEVATED BP Time Seen by Provider: 04/13/20 19:20 Source: patient Mode of arrival: ambulatory Limitations: no limitations History of Present Illness HPI narrative: 50-year-old female History of high blood pressure Presents for evaluation of chest pain Patient reports she was watching TV last night and experienced 15 minutes of mild to moderate chest discomfort which resolved spontaneously It was not provoked and there was no associated symptoms Today she checked her blood pressure and it was about 150/90 and she was worried about that so she went to an urgent care to be checked They did an EKG which was normal but they were worried about the chest pain last night and sent her here where she arrives in a pain-free and mildly hypertensive condition She used to smoke and just started vaping a couple months ago, no high cholesterol no diabetes no known coronary disease, she does take blood pressure medicine Related Data Home Medications Medication Instructions Recorded Confirmed ergocalciferol (vitamin D2) 1,250 mcg PO WEEKLY 10/16/19 01/13/20 estradiol 1 patch WEEKLY 10/16/19 01/13/20 hydrochlorothiazide 25 mg DAILY 10/16/19 01/13/20 sertraline 50 mg DAILY 10/16/19 01/13/20 tramadol 50 mg Q4-6H PRN 10/16/19 01/13/20 clonazepam 0.5 mg PO DAILY PRN 12/11/19 01/13/20 sumatriptan succinate SUBCUT 02/06/20 amlodipine 04/13/20 potassium chloride meq PO 04/13/20 Allergies Allergy/AdvReac Type Severity Reaction Status Date / Time No Known Allergies Allergy Verified 01/13/20 12:13 Review of Systems Review of Systems: All systems reviewed & are unremarkable except as noted in HPI and below Constitutional: Constitutional: Denies chills, Denies fatigue, Denies fever(s), Denies headache(s) and Denies weakness Eyes: Eyes: Reports no additional eye complaints and Denies change in vision ENT: Denies headache(s), Denies epistaxis, Denies nasal congestion and Denies sore throat Cardiovascular: Cardiovascular: Reports chest pain, Denies rapid heart rate, Denies leg edema, Denies palpitations, Denies dyspnea and Denies slow heart rate Respiratory: Respiratory: Denies cough, Denies dyspnea and Denies wheezing Gastrointestinal: Gastrointestinal: Denies abdominal pain, Denies diarrhea, Denies nausea and Denies vomiting Genitourinary: Genitourinary: Denies hematuria, Denies urinary frequency and Denies dysuria Musculoskeletal: Musculoskeletal: Denies deformity, Denies arthralgias, Denies joint swelling, Denies muscle weakness and Denies numbness Integumentary/Breasts: Skin/Breast: Denies rash and Denies wounds Neurologic: Denies headache(s), Denies focal weakness, Denies numbness and Denies weakness Psychiatric: Psychiatric: Reports no additional psychiatric complaints Endocrine: Endocrine: Denies fatigue and Denies palpitations Hematologic/Lymphatic: Hematologic/Lymphatic: Denies easy bleeding and Denies easy bruising Allergic/Immunologic: Allergic/Immunologic: Denies wheezing PMFSH Past Medical History Medical History (Updated 04/13/20 @ 21:05 by Jovanny Delarosa MD) Anxiety Arthritis neck and shoulders Back pain Depression Fibroids Gastritis HTN (hypertension) PADILLA (iron deficiency anemia) Keloid skin disorder Kidney stones Liver disease Migraines Surgical History Surgical History History of colonoscopy History of hysterectomy 05/2018 History of tubal ligation Family History Family History Father Kidney disease Hypertension Acute myocardial infarction Sibling Hypertension Sibling Hypertension Thyroid disease Sibling Hypertension Social History Social History Tobacco type: cigarettes Alcohol intake: current Substance use: never Ge
--- NOTE | 2020-04-13 19:33 | PC.NURSE ---
blood specimens rejected by lab. patient refuses further venipuncture
[2020-04-13 20:17] LABS: INR 0.9; Prothrombin Time 12.3 Seconds (11.1-14.7)
[2020-04-13 20:18] LABS: Partial Thromboplastin Time 27.8 SECONDS (22.3-36.8)
[2020-04-13 20:20] LABS: Anion Gap 3 mmol/L (8-16); Blood Urea Nitrogen 14 mg/dL (7-17); Calcium 9.3 mg/dL (8.4-10.2); Carbon Dioxide 35 mmol/L (22-30); Chloride 100 mmol/L (98-107); Estimated CRCL calculation 48 ml/min; Estimated Glomerular Filt Rate > 60; Glucose 81 mg/dL (65-105); Potassium 3.2 mmol/L (3.4-5.0); Sodium 138 mmol/L (137-145)
[2020-04-13 20:32] LABS: Troponin I < 0.012 ng/mL (0.000-0.034)
[2020-04-13] MEDS: POTASSIUM CHLORIDE 20 MEQ PACKET (FOR LIQUID) 40 MEQ PO (20:49)
--- NOTE | 2020-04-13 21:10 | PC.NURSE ---
patient angry about request to draw second troponin. states that so much blood shouldnt be necessary. patient decided to leave [facility] after being informed of the risk of doing so and being told the benefits of continued care
== END 2020-04-13 21:15 | disposition left against medical advice (07) ==
PROVIDERS: Emergency Medicine; Emergency Provider Emergency Medicine; PCP Nurse Practitioner Family
DX: R07.89 Other chest pain (principal); I10 Essential (primary) hypertension; F41.9 Anxiety disorder, unspecified; M19.90 Unspecified osteoarthritis, unspecified site; F32.9 Major depressive disorder, single episode, unspecified
CPT/HCPCS: 36415; 71045; 80048; 81001; 84484; 85025; 85610; 85730; 93005; 99284; A9270

== ENCOUNTER 2020-07-27 12:02 | Outpatient (CLI) | payer BC, SELFPAY ==
--- NOTE | ~2020-07-27 | MM_ITS ---
EXAMINATION: MM screening dagmar BI w ramos HISTORY: Screening TECHNIQUE: Craniocaudal and mediolateral oblique 3-D tomosynthesis images were obtained and synthetic 2-D images were generated. CAD analysis was submitted and interpreted. COMPARISON: Comparison to multiple prior studies sequentially, with oldest reviewed study dated 06/14. BREAST PARENCHYMAL COMPOSITION: The breasts are extremely dense, which lowers the sensitivity of mamm ography. FINDINGS: There is no evidence of suspicious mass, calcification, or architectural distortion to sugg est malignancy in either breast. There has been no suspicious interval change. IMPRESSION: 1. No mammographic evidence of malignancy. 2. Recommend routine screening mammography in one year. BI-RADS Category 1: Negative Reviewed, dictated and finalized at location A. LAY DECORATOR
== END 2020-07-27 12:03 | disposition home or self-care (01) ==
LOC: ANHIMG 12:03
PROVIDERS: PCP Nurse Practitioner Family; Visit Provider Nurse Practitioner Family
DX: Z12.31 Encounter for screening mammogram for malignant neoplasm of breast (principal)
CPT/HCPCS: 77063; 77067

== ENCOUNTER 2020-10-28 11:52 | Emergency (ER) | payer BC, SELFPAY ==
[2020-10-28 12:21] VITALS: BP 136/88; PULSE 76; RESP 16; TEMP 36.9; O2SAT 100
--- NOTE | 2020-10-28 12:54 | ED.CHESTPAIN ---
HPI - Chest Pain General Chief Complaint: Chest Pain Stated Complaint: Chest Pain,Left Arm Pain Time Seen by Provider: 10/28/20 12:20 Source: patient, RN notes reviewed and old records reviewed Mode of arrival: ambulatory Limitations: no limitations History of Present Illness HPI narrative: 50 year old female who presents to [facility] care with complaints of having episode of chest pain at midnight last night with left arm tightness which lasted 10-15 minutes. Patient states that she has no pain at present, states her left arm feels kind of sore today, denies any shortness of breath,denies any nausea, diaphoresis, or feelings of dizziness. Patient states that she has been having some hot flashes for the past few days that feel different from her regular hot flashes, Patient states that she has been having alot of stress and worry over her kids who just lost their father 5 months ago. States that she is using herbal remedies for her anxiety and depression now not sure what they are but states her PCP is aware. Patient continues to use tobacco daily. 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 States she feels tired. MD complaint: other (episode of chest pain last night no pain now) Pertinent past history: other (tobacco abuse) Onset (ago): hour(s) (episode was about 12 hours ago denies any chest pain at present) Timing of current episode: now resolved Prior episodes: Yes Onset: during rest Pain location: substernal Pain radiation: left arm Quality: tightness and aching Relieving factors: other (went away on its own) Exacerbating factors: nothing Context: other (stress) Treatment prior to arrival: none Risk Factors Coronary artery disease risk factors: smoking history and hypertension Thoracic aortic dissection risk factors: longstanding hypertension Pulmonary embolism risk factors: oral contracepetive use (estradiol) Related Data On Oral Contraceptives: No Home Medications Medication Instructions Recorded Confirmed ergocalciferol (vitamin D2) 1,250 mcg PO WEEKLY 10/16/19 01/13/20 estradiol 1 patch WEEKLY 10/16/19 01/13/20 hydrochlorothiazide 25 mg DAILY 10/16/19 01/13/20 tramadol 50 mg Q4-6H PRN 10/16/19 01/13/20 sumatriptan succinate SUBCUT 02/06/20 amlodipine 04/13/20 potassium chloride meq PO 04/13/20 Herbal Supplements For 10/28/20 Anxiety/Depression omeprazole 10/28/20 Allergies Allergy/AdvReac Type Severity Reaction Status Date / Time No Known Allergies Allergy Verified 01/13/20 12:13 Review of Systems Review of Systems: Narrative: CONSTITUTIONAL: Denies fever, chills, or sweats. EYES: Denies visual changes, redness, or discharge. ENT: Denies rhinorrhea, congestion, sore throat, or otalgia. CARDIOVASCULAR: Denies chest pain at present, no palpitations, or edema. RESPIRATORY: Denies cough or dyspnea. GASTROINTESTINAL: Denies abdominal pain, nausea, vomiting, or diarrhea. GENITOURINARY: Denies dysuria or hematuria. SKIN: Denies rash or itching. MUSCULOSKELETAL: Denies back pain,reports some soreness to left arm, or myalgia. NEUROLOGIC: Denies headache, numbness, or weakness. PSYCHIATRIC: History of anxiety or depression. All systems reviewed & are unremarkable except as noted in HPI and below PMFSH Past Medical History Medical History Anxiety Arthritis neck and shoulders Back pain Depression Fibroids Gastritis HTN (hypertension) PADILLA (iron deficiency anemia) Keloid skin disorder Kidney stones Liver disease Migraines Surgical History Surgical History History of colonoscopy History of hysterectomy 05/2018 History of tubal ligation Family History Family History Father Kidney disease Hypertension Acute myocardial infarction Sibling Hypertension Sibling Hyper
--- NOTE | 2020-10-28 15:08 | ECG_ITS ---
Measurements Intervals [place] Rate: 73 P: 52 WV: 156 QRS: 61 QRSD: 96 T: 33 QT: 411 QTc: 453 Interpretive Statements SINUS RHYTHM VENTRICULAR PREMATURE COMPLEX INCOMPLETE RIGHT BUNDLE BRANCH BLOCK NONSPECIFIC T-WAVE ABNORMALITY- ANTERIOR LEADS BORDERLINE ECG Electronically Signed On 10-28-2020 16:46:57 CDT by Khanh Roberson D.O.
== END 2020-10-28 13:24 | disposition home or self-care (01) ==
PROVIDERS: Emergency Provider Registered Nurse; PCP Nurse Practitioner Family
DX: R07.89 Other chest pain (principal); F17.290 Nicotine dependence, other tobacco product, uncomplicated; M47.812 Spondylosis without myelopathy or radiculopathy, cervical region; M19.012 Primary osteoarthritis, left shoulder; M19.011 Primary osteoarthritis, right shoulder; D50.9 Iron deficiency anemia, unspecified
CPT/HCPCS: 93005; 99213; G0463

== ENCOUNTER 2020-12-04 03:33 | Emergency (ER) | payer BC, SELFPAY ==
[2020-12-04 03:40] VITALS: BP 154/87; PULSE 71; RESP 18; TEMP 36.6; O2SAT 100
[2020-12-04] MEDS: SODIUM CHLORIDE 0.9% IV 1,000 ML 999 ML IV CONT (04:10)
[2020-12-04] MEDS: ONDANSETRON INJ 4 MG/2 ML VIAL IV PUSH (04:10)
[2020-12-04] MEDS: KETOROLAC 30 MG/ML VIAL (*BKC) IV PUSH (04:10)
[2020-12-04] MEDS: diphenhydrAMINE HCl INJ 50 MG/ML VIAL 25 MG IV PUSH (04:10)
--- NOTE | 2020-12-04 05:13 | ED.HA ---
HPI - Headache General Chief Complaint: Headache Stated Complaint: migraine Time Seen by Provider: 12/04/20 03:35 Source: RN notes reviewed History of Present Illness HPI Narrative: Patient presents to emergency department from home for headache. Patient states she has a history of migraine headaches she is approximately once a month states that current headache has been ongoing for the past 4 days worsening this evening pain is located over the left posterior scalp does not radiate states is consistent with her previous migraines she notes mild dizziness as well as mild blurred vision in the left eye which she states is normal when she gets her migraines she does note some nausea as well she denies any fevers or chills, chest pain shortness of breath numbness or tingling in the extremities or any other symptoms she states she did take her sumatriptan approximately 30 minutes prior to arrival Related Data Home Medications Medication Instructions Recorded Confirmed ergocalciferol (vitamin D2) 1,250 mcg PO WEEKLY 10/16/19 01/13/20 estradiol 1 patch WEEKLY 10/16/19 01/13/20 hydrochlorothiazide 25 mg DAILY 10/16/19 01/13/20 tramadol 50 mg Q4-6H PRN 10/16/19 01/13/20 sumatriptan succinate SUBCUT 02/06/20 amlodipine 04/13/20 potassium chloride meq PO 04/13/20 Herbal Supplements For 10/28/20 Anxiety/Depression omeprazole 10/28/20 Allergies Allergy/AdvReac Type Severity Reaction Status Date / Time No Known Allergies Allergy Verified 01/13/20 12:13 Review of Systems Review of Systems: Narrative: Gen.: Denies fevers or chills Eyes: Reports mild left eye blurriness ENT: Denies congestion Respiratory: Denies shortness of breath or cough CV: Denies chest pain or palpitations GI: Denies abdominal painemesis or diarrhea reports nausea Musculoskeletal: Denies back pain or muscle pain Neuro: See HPI Skin: Denies rash Except as documented, all other systems reviewed and negative PMF Past Medical History Medical History (Updated 12/04/20 @ 05:16 by Amador Stuart DO) Anxiety Arthritis neck and shoulders Back pain Depression Fibroids Gastritis HTN (hypertension) PADILLA (iron deficiency anemia) Keloid skin disorder Kidney stones Liver disease Migraines Surgical History Surgical History History of colonoscopy History of hysterectomy 05/2018 History of tubal ligation Family History Family History Father Kidney disease Hypertension Acute myocardial infarction Sibling Hypertension Sibling Hypertension Thyroid disease Sibling Hypertension Social History Social History Smoking status: Current every day smoker Tobacco type: cigars Additional smoking assessment comments: 6 black and mild cigars daily Alcohol intake: current Alcohol use details: social Substance use: never Gender identity (if verbalized by the patient): Female Exam Narrative: Exam Narrative: APPEARANCE: No acute distress, nontoxic, resting in bed HEENT: Normocephalic, atraumatic, OMM, EYES: PERRL, EOMI NECK: Supple, nontender, full range of motion without pain, no meningismus RESPIRATORY: No respiratory distress, clear to auscultation bilaterally with no rhonchi wheezing or rales CARDIOVASCULAR: RRR s murmur ABDOMINAL: Soft, nontender, nondistended MUSCULOSKELETAL: Moves all extremities. No clubbing, cyanosis or edema. NEURO: A and O ?3, following commands, speech normal, no facial droop,muscle strength 5 out of 5 bilateral upper and lower extremities SKIN:: Warm, dry. Normal Color PSYCHIATRIC: Normal affect/mood Course Course Emergency Course: Reviewed old records patient has been seen in the ED for migraine several times performed past Patient states headache is resolved following medication she states that dizziness and eye blurriness i
[2020-12-04 05:30] VITALS: BP 127/84; PULSE 67; RESP 18; O2SAT 100
== END 2020-12-04 05:35 | disposition home or self-care (01) ==
PROVIDERS: Emergency Provider Emergency Medicine; PCP Nurse Practitioner Family
DX: G43.909 Migraine, unspecified, not intractable, without status migrainosus (principal); I10 Essential (primary) hypertension; D50.9 Iron deficiency anemia, unspecified; K76.9 Liver disease, unspecified; M19.011 Primary osteoarthritis, right shoulder; M19.012 Primary osteoarthritis, left shoulder; F32.9 Major depressive disorder, single episode, unspecified; F41.9 Anxiety disorder, unspecified; Z87.442 Personal history of urinary calculi; F17.290 Nicotine dependence, other tobacco product, uncomplicated
CPT/HCPCS: 96361; 96374; 96375; 99284; J1200; J1885; J2405; J7030

== ENCOUNTER 2020-12-18 13:48 | Emergency (ER) | payer BC, SELFPAY ==
--- NOTE | ~2020-12-18 | XR_ITS ---
EXAMINATION: XR chest 1V portable EXAM DATE: 12/18/2020 14:17 INDICATION: Cough, fever. TECHNIQUE: Portable AP frontal chest x-ray was obtained. Comparison is made to prior examination from 04/13/2020. FINDINGS: The lungs are clear. There are no pleural effusions. Cardiac silhouette is prominent but magnified on this AP technique. There is no pneumothorax suspected. The bones and soft tissues ar e unremarkable. IMPRESSION: No acute cardiopulmonary findings. Reviewed, dictated and finalized at location A.
[2020-12-18 13:55] VITALS: BP 124/82; PULSE 85; RESP 20; TEMP 38.1; O2SAT 100
[2020-12-18 14:51] VITALS: BP 115/79; PULSE 75; RESP 18; TEMP 37.4; O2SAT 100
--- NOTE | 2020-12-18 16:03 | ED.URI ---
HPI - URI/Sore Throat General Chief Complaint: Upper Respiratory Infection Stated Complaint: COUGH AND FEVER Time Seen by Provider: 12/18/20 14:37 Source: patient Mode of arrival: ambulatory Limitations: no limitations History of Present Illness HPI Narrative: This is a 50 year old female that presents to the ER for cold symptoms present since yesterday. Reports her boyfriend is currently getting over a cold. Patient reports fever, cough, rhinorrhea, and headache. She did not receive her covid vaccination. Denies chest pain or shortness of breath. Related Data Home Medications Medication Instructions Recorded Confirmed ergocalciferol (vitamin D2) 1,250 mcg PO WEEKLY 10/16/19 01/13/20 estradiol 1 patch WEEKLY 10/16/19 01/13/20 hydrochlorothiazide 25 mg DAILY 10/16/19 01/13/20 tramadol 50 mg Q4-6H PRN 10/16/19 01/13/20 sumatriptan succinate SUBCUT 02/06/20 amlodipine 04/13/20 potassium chloride meq PO 04/13/20 Herbal Supplements For 10/28/20 Anxiety/Depression omeprazole 10/28/20 Allergies Allergy/AdvReac Type Severity Reaction Status Date / Time Penicillins Allergy Rash Verified 12/18/20 14:00 Review of Systems Review of Systems: Narrative: CONSTITUTIONAL: Reports fever ENT: Reports rhinorrhea. Denies congestion, sore throat CARDIOVASCULAR: Denies chest pain RESPIRATORY: Reports cough. Denies dyspnea. NEUROLOGIC: Reports headache All systems reviewed & are unremarkable except as noted in HPI and below PMFSH Past Medical History Medical History (Updated 12/18/20 @ 16:26 by Naomie Marie PA-C) Anxiety Arthritis neck and shoulders Back pain Depression Fibroids Gastritis HTN (hypertension) PADILLA (iron deficiency anemia) Keloid skin disorder Kidney stones Liver disease Migraines Surgical History Surgical History History of colonoscopy History of hysterectomy 05/2018 History of tubal ligation Family History Family History Father Kidney disease Hypertension Acute myocardial infarction Sibling Hypertension Sibling Hypertension Thyroid disease Sibling Hypertension Social History Social History Smoking status: Current every day smoker Tobacco type: cigars Additional smoking assessment comments: 6 black and mild cigars daily Alcohol intake: current Alcohol use details: social Substance use: never Gender identity (if verbalized by the patient): Female Exam Narrative: Exam Narrative: GENERAL: Well-appearing, well-nourished, and in no acute distress. HEAD: Normocephalic, atraumatic. EYES: PERRLA and EOMI. ENT: Nares clear, no rhinorrhea or epistaxis. Mucous membranes moist. Oropharynx without tonsillar hypertrophy exudate or other lesions. Bilateral TMs pearly williamson non-bulging NECK: Supple. No adenopathy or masses. CHEST: Clear to auscultation. No respiratory distress. No wheezes rales or rhonchi HEART: Regular rate and rhythm. No murmur heard. Normal peripheral pulses. EXTREMITIES: Normal range of motion. No edema. SKIN: Warm, dry, no rash. NEURO: No focal deficits. Alert and oriented x3. PSYCH: Normal mood and affect Course Vital Signs Vital signs: Vital Signs Temperature 100.6 F H 12/18/20 13:55 Pulse Rate 85 12/18/20 13:55 Respiratory Rate 20 12/18/20 13:55 Blood Pressure 124/82 12/18/20 13:55 Pulse Oximetry 100 12/18/20 13:55 Temperature 99.3 F 12/18/20 14:51 Pulse Rate 75 12/18/20 14:51 Respiratory Rate 18 12/18/20 14:51 Blood Pressure 115/79 12/18/20 14:51 Pulse Oximetry 100 12/18/20 14:51 MDM - URI/Sore Throat MDM Narrative Medical decision making narrative: Patient presents the emergency department for cold symptoms present since yesterday. Febrile upon arrival. She is nontoxic-appearing. Lungs are clear on exam. Chest x-ray without ac
[2020-12-20 15:38] LABS: SARS-CoV-2 RNA PCR Positive
== END 2020-12-18 16:35 | disposition home or self-care (01) ==
PROVIDERS: Emergency Provider Emergency Medicine; PCP Nurse Practitioner Family
DX: U07.1 COVID-19 (principal); M19.012 Primary osteoarthritis, left shoulder; M19.011 Primary osteoarthritis, right shoulder; I10 Essential (primary) hypertension; K76.9 Liver disease, unspecified; Z87.442 Personal history of urinary calculi; F17.290 Nicotine dependence, other tobacco product, uncomplicated; F41.9 Anxiety disorder, unspecified; F32.9 Major depressive disorder, single episode, unspecified; Z86.2 Personal history of diseases of the blood and blood-forming organs and certain disorders involving the immune mechanism
CPT/HCPCS: 71045; 99283; C9803; U0003; U0005

== ENCOUNTER 2021-02-01 01:14 | Emergency (ER) | payer BC, SELFPAY ==
[2021-02-01 01:19] VITALS: BP 158/93; PULSE 72; RESP 20; TEMP 36.9; O2SAT 100
--- NOTE | 2021-02-01 03:41 | ED.FEMALEGU ---
HPI - Female Genitourinary General Chief complaint: [employer] Stated complaint: condom stuck inside Time Seen by Provider: 02/01/21 03:11 Source: patient History of Present Illness HPI Narrative: Patient presents with concern for retained condom. Patient reports she was having intercourse with her after they finished they were unsure where the condom went. Patient attempted to examine herself but was unable to identify any foreign bodies. They looked around the room and did not notice any condoms so they came to the ER for evaluation. Patient reports she overall feels well she denies any discomfort or pain. Related Data Home Medications Medication Instructions Recorded Confirmed ergocalciferol (vitamin D2) 1,250 mcg PO WEEKLY 10/16/19 01/13/20 estradiol 1 patch WEEKLY 10/16/19 01/13/20 hydrochlorothiazide 25 mg DAILY 10/16/19 01/13/20 tramadol 50 mg Q4-6H PRN 10/16/19 01/13/20 sumatriptan succinate SUBCUT 02/06/20 amlodipine 04/13/20 potassium chloride meq PO 04/13/20 Herbal Supplements For 10/28/20 Anxiety/Depression omeprazole 10/28/20 Allergies Allergy/AdvReac Type Severity Reaction Status Date / Time Penicillins Allergy Rash Verified 12/18/20 14:00 Review of Systems Review of Systems: CONSTITUTIONAL: Denies fever, chills, or sweats. CARDIOVASCULAR: Denies chest pain, palpitations, or edema. RESPIRATORY: Denies cough or dyspnea. GASTROINTESTINAL: Denies abdominal pain, nausea, vomiting, or diarrhea. GENITOURINARY: Denies dysuria or hematuria. SKIN: Denies rash or itching. MUSCULOSKELETAL: Denies back pain, joint pain, or myalgia. NEUROLOGIC: Denies headache, numbness, dizziness, or weakness. [facility] Past Medical History Medical History (Updated 02/01/21 @ 03:49 by Ronald Sheriff MD) Anxiety Arthritis neck and shoulders Back pain Depression Fibroids Gastritis HTN (hypertension) PADILLA (iron deficiency anemia) Keloid skin disorder Kidney stones Liver disease Migraines Surgical History Surgical History History of colonoscopy History of hysterectomy 05/2018 History of tubal ligation Family History Family History Father Kidney disease Hypertension Acute myocardial infarction Sibling Hypertension Sibling Hypertension Thyroid disease Sibling Hypertension Social History Social History Smoking status: Current every day smoker Tobacco type: cigars Additional smoking assessment comments: 6 black and mild cigars daily Alcohol intake: current Alcohol use details: social Substance use: never Gender identity (if verbalized by the patient): Female Exam Narrative: GENERAL: Well-appearing, well-nourished, and in no acute distress. HEAD: Normocephalic, atraumatic. EYES: PERRLA and EOMI. ENT: Nares clear, no rhinorrhea or epistaxis. Mucous membranes moist. NECK: Supple. No masses. No JVD ABDOMEN: Soft, nontender, nondistended, normal active bowel sounds. : Room present. External exam was without ulcers lesions or edema. Speculum exam was with scant discharge noted in the vaginal vault. There is no foreign body identified in the vaginal vault. EXTREMITIES: Normal range of motion. No edema. SKIN: Warm, dry, no rash. NEURO: No focal deficits. Alert and oriented x3. PSYCH: Normal mood and affect. Course Vital Signs Vital signs: Vital Signs Temperature 36.9 C 02/01/21 01:19 Pulse Rate 72 02/01/21 01:19 Respiratory Rate 20 02/01/21 01:19 Blood Pressure 158/93 H 02/01/21 01:19 Pulse Oximetry 100 02/01/21 01:19 Temperature 36.9 C 02/01/21 01:19 Pulse Rate 72 02/01/21 01:19 Respiratory Rate 20 02/01/21 01:19 Blood Pressure 158/93 H 02/01/21 01:19 Pulse Oximetry 100 02/01/21 01:19 MDM - Female Genitourinary MDM Narrative Medical decision making na
== END 2021-02-01 04:11 | disposition home or self-care (01) ==
PROVIDERS: Emergency Provider Emergency Medicine
DX: Z04.89 Encounter for examination and observation for other specified reasons (principal); F41.9 Anxiety disorder, unspecified; F32.9 Major depressive disorder, single episode, unspecified; I10 Essential (primary) hypertension; D50.9 Iron deficiency anemia, unspecified; Z87.442 Personal history of urinary calculi; K76.9 Liver disease, unspecified; F17.290 Nicotine dependence, other tobacco product, uncomplicated
CPT/HCPCS: 99282

== ENCOUNTER 2021-02-07 13:48 | Emergency (ER) | payer BC, SELFPAY ==
[2021-02-07 13:57] VITALS: BP 150/88; PULSE 66; RESP 16; TEMP 35.9; O2SAT 99
--- NOTE | 2021-02-07 14:00 | ED.FEMALEGU ---
HPI - Female Genitourinary General Chief complaint: Urogenital-Female Stated complaint: Lower Back Pain, UTI Time Seen by Provider: 02/07/21 13:59 Source: patient, RN notes reviewed and old records reviewed Mode of arrival: ambulatory Limitations: no limitations History of Present Illness HPI Narrative: 51 yo female presents to the [facility] with C/O low back and suprapubic cramping. Thinks that she may have a UTI. No vaginal complaints, Has an apt with [employer] soon. Has a history of hematuria, states she has a appointment with a kidney doctor in the next 2 weeks. States that she just want to make sure was not a UTI. Denies nausea vomiting. No chest pain or abdominal pain. Denies fevers Related Data Home Medications Medication Instructions Recorded Confirmed ergocalciferol (vitamin D2) 1,250 mcg PO WEEKLY 10/16/19 01/13/20 estradiol 1 patch WEEKLY 10/16/19 01/13/20 hydrochlorothiazide 25 mg DAILY 10/16/19 01/13/20 tramadol 50 mg Q4-6H PRN 10/16/19 01/13/20 sumatriptan succinate SUBCUT 02/06/20 amlodipine 04/13/20 potassium chloride meq PO 04/13/20 Herbal Supplements For 10/28/20 Anxiety/Depression omeprazole 10/28/20 Allergies Allergy/AdvReac Type Severity Reaction Status Date / Time Penicillins Allergy Rash Verified 12/18/20 14:00 Review of Systems Review of Systems: All systems reviewed & are unremarkable except as noted in HPI and below Constitutional: Constitutional: Reports no additional constitutional complaints Eyes: Eyes: Reports no additional eye complaints ENT: Reports system reviewed and no additional complaints, except as documented Cardiovascular: Cardiovascular: Reports no additional cardiovascular complaints and Denies chest pain Respiratory: Respiratory: Reports no additional respiratory complaints Gastrointestinal: Gastrointestinal: Reports no additional gastrointestinal complaints, Denies diarrhea, Denies nausea and Denies vomiting Genitourinary: Genitourinary: Reports as per HPI, Reports hematuria, Reports nocturia, Reports dysuria and Denies vaginal discharge Musculoskeletal: Musculoskeletal: Reports no additional musculoskeletal complaints Integumentary/Breasts: Skin/Breast: Reports system reviewed and no additional complaints, except as docu Neurologic: Reports system reviewed and no additional complaints, except as documented Psychiatric: Psychiatric: Reports no additional psychiatric complaints Allergic/Immunologic: Allergic/Immunologic: Reports no additional allergic/immunologic complaints PMFSH Past Medical History Medical History Anxiety Arthritis neck and shoulders Back pain Depression Fibroids Gastritis HTN (hypertension) PADILLA (iron deficiency anemia) Keloid skin disorder Kidney stones Liver disease Migraines Surgical History Surgical History History of colonoscopy History of hysterectomy 05/2018 History of tubal ligation Family History Family History Father Kidney disease Hypertension Acute myocardial infarction Sibling Hypertension Sibling Hypertension Thyroid disease Sibling Hypertension Social History Social History Smoking status: Current every day smoker Tobacco type: cigars Additional smoking assessment comments: 6 black and mild cigars daily Alcohol intake: current Alcohol use details: social Substance use: never Gender identity (if verbalized by the patient): Female Comments At the time of my signature, I reviewed and agree with the nursing past medical, surgical, social, and family history. There is no relevant family history pertinent to the patient complaint. Exam Const: General: healthy appearing, no acute distress and alert Nutritional Appearance: well nourished Orientation/consciousness: patient orient
== END 2021-02-07 14:32 | disposition home or self-care (01) ==
PROVIDERS: Emergency Provider Nurse Practitioner
DX: R31.9 Hematuria, unspecified (principal); F32.9 Major depressive disorder, single episode, unspecified; F41.9 Anxiety disorder, unspecified; I10 Essential (primary) hypertension; F17.200 Nicotine dependence, unspecified, uncomplicated
CPT/HCPCS: 81003; 99212; G0463

== ENCOUNTER 2021-02-27 14:13 | Emergency (ER) | payer BC, SELFPAY ==
[2021-02-27 14:21] VITALS: BP 150/90; PULSE 65; RESP 16; TEMP 36.7; O2SAT 100
--- NOTE | 2021-02-27 14:47 | ED.GENADULT ---
HPI - General Adult General Chief complaint: Unspecified Stated complaint: Swollen Gland Time Seen by Provider: 02/27/21 14:25 Source: patient and RN notes reviewed Mode of arrival: ambulatory Limitations: no limitations History of Present Illness HPI narrative: Patient presents today complaining of a lump to her the right side of her neck x2 days. States it is slightly tender if she touches it. She also reports burning to the base of her tongue when she chews. She has had some allergy symptoms recently to include rhinorrhea and nasal congestion. She has not had any [id number] medication for symptoms prior to arrival. MD complaint: Lump to right neck Related Data Home Medications Medication Instructions Recorded Confirmed ergocalciferol (vitamin D2) 1,250 mcg PO WEEKLY 10/16/19 02/27/21 estradiol 1 patch TOPICAL WEEKLY 10/16/19 02/27/21 hydrochlorothiazide 25 mg PO DAILY 10/16/19 02/27/21 amlodipine 5 mg PO DAILY 04/13/20 02/27/21 potassium chloride 20 meq PO DAILY 04/13/20 02/27/21 Allergies Allergy/AdvReac Type Severity Reaction Status Date / Time Penicillins Allergy Rash Verified 02/27/21 14:36 Review of Systems Review of Systems: CONSTITUTIONAL: Denies body aches, fever, chills, or sweats. EYES: Denies visual changes, redness, or discharge. ENT: Denies sore throat, or otalgia.+ Lump to right neck, rhinorrhea, nasal congestion CARDIOVASCULAR: Denies chest pain, palpitations, or edema. RESPIRATORY: Denies cough or dyspnea. GASTROINTESTINAL: Denies abdominal pain, nausea, vomiting, or diarrhea. GENITOURINARY: Denies dysuria or hematuria. SKIN: Denies rash, itching, or wounds. MUSCULOSKELETAL: Denies back pain, joint pain, or myalgia. NEUROLOGIC: Denies headache, numbness, tingling, or weakness. PSYCH: Denies depression or anxiety. [facility] Past Medical History Medical History (Updated 02/27/21 @ 14:52 by Yesenia Rausch, [facility], ) Anxiety Arthritis neck and shoulders Back pain Depression Fibroids Gastritis HTN (hypertension) PADILLA (iron deficiency anemia) Keloid skin disorder Kidney stones Liver disease Migraines Surgical History Surgical History History of colonoscopy History of hysterectomy 05/2018 History of tubal ligation Family History Family History Father Kidney disease Hypertension Acute myocardial infarction Sibling Hypertension Sibling Hypertension Thyroid disease Sibling Hypertension Social History Social History Smoking status: Current every day smoker Tobacco type: cigars Additional smoking assessment comments: 6 black and mild cigars daily Alcohol intake: current Alcohol use details: social Substance use: never Gender identity (if verbalized by the patient): Female Comments At time of signature, I have reviewed and agree with nursing past medical, surgical, social and family history unless otherwise noted. Please see nursing chart for further information. There is no relevant family history pertinent to the presenting complaint Exam Narrative: GENERAL: Well-appearing, well-nourished, and in no acute distress. HEAD: Normocephalic, atraumatic. EYES: EOMI. No redness or drainage. Conjunctivae normal. ENT: Mucous membranes pink and moist. Nares clear. No rhinorrhea. TMs normal bilaterally. Throat normal. Uvula midline. Teeth are nontender to percussion. No obvious periapical abscesses noted. Tongue normal. No sublingual swelling noted. NECK: Normal AROM. Supple. Mild to moderate edema of the right tonsillar lymph node. It is soft, movable, and mildly tender to palpation. No erythema noted. CHEST: No respiratory distress. Clear to auscultation. HEART: Regular rate and rhythm. No murmur appreciated. Normal peripheral pulses. EXTREMITIES: Normal range of
== END 2021-02-27 14:58 | disposition home or self-care (01) ==
PROVIDERS: Emergency Provider Nurse Practitioner; PCP Physician Assistant
DX: L04.9 Acute lymphadenitis, unspecified (principal); J30.2 Other seasonal allergic rhinitis; F17.290 Nicotine dependence, other tobacco product, uncomplicated; M47.812 Spondylosis without myelopathy or radiculopathy, cervical region; M19.012 Primary osteoarthritis, left shoulder; M19.011 Primary osteoarthritis, right shoulder; I10 Essential (primary) hypertension; D50.9 Iron deficiency anemia, unspecified
CPT/HCPCS: 99211; G0463

== ENCOUNTER 2021-07-25 09:19 | Outpatient (CLI) | payer OTHER, SELFPAY ==
--- NOTE | 2021-07-25 09:23 | EST_ITS ---
Patient Info Name: Shaquille Reeves Age: 51 years : 1970 Gender: Female Ht: 65 in Wt: 165 lbs BSA: 1.87 m2 HR: 73 bpm BP: 129 / 86 mmHg Heart Rhythm: Sinus Rhythm Exam Date: 07/25/2021 9:37 AM Exam Location: [facility] Stress Patient Status: Outpatient Admit Date: 07/25/2021 Staff Ordering Physician: Khanh Roberson DO Attending Provider: Khanh Roberson DO Exercise Technologist: Anisha Dunn CT Exercise Physician: Khanh Roberson DO Exam Type: CA stress test treadmill Study Info Indications R07.9 - Chest pain, unspecified A treadmill exercise stress test was performed. Summary 1. 1. Negative Nile exercise stress test for ischemic ST changes by ECG criteria. 2. 2. Good functional capacity, achieving 8.9 METs of workload. 3. 3. Appropriate HR response to exercise. 4. 4. Appropriate HR recovery at 1 minute post exercise. 5. 5. No imaging with stress testing. 6. 6. Patient informed of the above results. Protocol: [facility] Stress ECG Details Stage: REST Duration (min): 1 min : 21 sec Speed (mph): 0.0 Grade (%): 0 HR (bpm): 72 SBP (mmHg): 129 DBP (mmHg): 86 METS: --- Stage: REST Duration (min): 7 min : 46 sec Speed (mph): 0.0 Grade (%): 0 HR (bpm): 76 SBP (mmHg): 129 DBP (mmHg): 86 METS: --- Stage: STAGE 1 Duration (min): 1 min : 0 sec Speed (mph): 1.7 Grade (%): 10 HR (bpm): 91 SBP (mmHg): 129 DBP (mmHg): 86 METS: --- Stage: STAGE 1 Duration (min): 2 min : 0 sec Speed (mph): 1.7 Grade (%): 10 HR (bpm): 106 SBP (mmHg): 129 DBP (mmHg): 86 METS: --- Stage: STAGE 1 Duration (min): 3 min : 0 sec Speed (mph): 1.7 Grade (%): 10 HR (bpm): 104 SBP (mmHg): 193 DBP (mmHg): 85 METS: --- Stage: STAGE 2 Duration (min): 1 min : 0 sec Speed (mph): 2.5 Grade (%): 12 HR (bpm): 118 SBP (mmHg): 193 DBP (mmHg): 85 METS: --- Stage: STAGE 2 Duration (min): 2 min : 0 sec Speed (mph): 2.5 Grade (%): 12 HR (bpm): 127 SBP (mmHg): 202 DBP (mmHg): 85 METS: --- Stage: STAGE 2 Duration (min): 3 min : 0 sec Speed (mph): 2.5 Grade (%): 12 HR (bpm): 130 SBP (mmHg): 202 DBP (mmHg): 85 METS: --- Stage: STAGE 3 Duration (min): 1 min : 0 sec Speed (mph): 3.4 Grade (%): 14 HR (bpm): 146 SBP (mmHg): 210 DBP (mmHg): 100 METS: --- Stage: STAGE 3 Duration (min): 1 min : 0 sec Speed (mph): 3.4 Grade (%): 14 HR (bpm): 145 SBP (mmHg): 210 DBP (mmHg): 100 METS: --- Stage: RECOVERY Duration (min): 0 min : 59 sec Speed (mph): 0.0 Grade (%): 0 HR (bpm): 110 SBP (mmHg): 210 DBP (mmHg): 100 METS: --- Stage: RECOVERY Duration (min): 1 min : 59 sec Speed (mph): 0.0 Grade (%): 0 HR (bpm): 92 SBP (mmHg): 210 DBP (mmHg): 100 METS: ---
== END 2021-07-25 09:20 | disposition home or self-care (01) ==
LOC: ANHCARD 09:21
PROVIDERS: PCP Physician Assistant; Visit Provider Internal Medicine Cardiovascular Disease
DX: R07.89 Other chest pain (principal)
CPT/HCPCS: 93017